=== PATIENT | female | born 1990 | race African-American/Black ===

== ENCOUNTER 2021-03-11 09:28 | Emergency (ER) | payer OTHER ==
[2021-03-11 09:36] VITALS: BP 114/65; PULSE 88; BMI 36.1
[2021-03-11 09:43] VITALS: TEMP 97.5
[2021-03-11] MEDS ORDERED: ALBUTEROL SO4 2.5/IPRATROPIUM 0.5 INH SOL 3 ML VIAL.NEB. NEB ONE (09:58)
[2021-03-11] MEDS ORDERED: predniSONE 20 MG TABLET (UD) PO ONE (10:33)
[2021-03-11] MEDS ORDERED: predniSONE 20 MG TABLET (UD) ONE (10:56)
== END 2021-03-11 13:12 | disposition home or self-care (01) ==
LOC: JER 09:28
PROC: 3E0F7GC Introduction of Other Therapeutic Substance into Respiratory Tract, Via Natural or Artificial Opening (ICD-10-PCS; principal; 2021-03-11)
DX: J45.901 Unspecified asthma with (acute) exacerbation (principal); Z11.52 Encounter for screening for COVID-19
CPT/HCPCS: 71046-TC-FY; 84703; 99284-25; C9803; U0003; U0005